=== PATIENT | male | born 1945 | race African-American/Black ===

== ENCOUNTER 2019-05-31 07:55 | Inpatient (IN) | payer MEDICARE ==
[2019-05-31] VITALS (17 sets, daily range): BP systolic 91–197; BP diastolic 68–137; BMI 19.8
[~2019-05-31] VITALS: Ht 177.8 cm; Wt 58.6 kg
--- NOTE | ~2019-05-31 | HEMODYNAMI ---
PATIENT:JAY HAWTHORNE MEDICAL RECORD: [id number] : 45 LOCATION:[facility] D.2305 ADMISSION DATE: 05/31/19 Generatedon:06/01/201916:44 Patient name: JAY HAWTHORNE Patient #: [id number] SSN: [id number] : 1945 Date of study: 06/01/2019 Page: Of Hemodynamic Procedure Report Patient Data Patient Demographics Procedure consent was obtained First Name: JAY Gender: Male Last Name: CHRISTOPH : 1945 Patient #: [id number] Age: 74 year(s) Race: Black SSN: [id number] Additional ID: [id number] Contact details Address: [address] [place] [address] State: [place] City: [place] Zip code: [address] Past Medical History Allergies Allergen Reaction Date Comments Reported Penicillins 06/01/2019 Admission Admission Data Admission Date: 05/31/2019 Admission Time: 8:07 Room #: D.2305 Height (in.): 70 BSA: 1.79 (m2) Height (cm.): 177.8 BMI: 19.93 (kg/m2) Weight (lbs.): 138.89 Weight (kg.): 63 Lab Results Lab Result Date: 06/01/2019 Lab Result Time: 0:00 Biochemistry Name Units Result Min Max BUN mg/dl 59 --(----)-* 7 18 Creatinine mg/dl 4.6 --(----)-* 0.6 1.3 eGFR ml/min 16 *-(----)-- 90 120 AM CBC Name Units Result Min Max Hematocrit % 28.2 *-(----)-- 42 54 Hemoglobin g/dl 8.9 *-(----)-- 13.5 17.5 Procedure Procedure Types Cath Procedure Diagnostic Procedure C LH w/Coronaries Sedation Charges Moderate Sedation up to 15 minutes PCI Procedure Coronary Stent Coronary Stent Initial Hemochron ACT Test Procedure Description Procedure Date Procedure Date: 06/01/2019 Procedure Start Time: 16:20 Procedure End Time: 16:39 Procedure Staff Name Function Leo Caba MD Performing Physician Omayra Gomez RT Monitor Cole Matthews RT Scrub Ronny Parry RN Nurse Indication CAD NSTEMI Procedure Data Cath Procedure Fluoroscopy Diagnostic fluoroscopy Total fluoroscopy Time: 4 time: 4 min min Diagnostic fluoroscopy Total fluoroscopy dose: 497 dose: 497 mGy mGy Contrast Material Contrast Material Type Amount (ml) Isovue 300 92 Entry Location Entry Primary Successful Side Size Upsize Upsize Entry Closure Succes sful Closure Location (Fr) 1 (Fr) 2 (Fr) Remarks Device Remarks Femoral Right 5 Fr 6 Fr Exoseal artery Short Estimated blood loss: 10 ml Diagnostic catheters Device Type Used For End Catheter Placement MULTIPACK JL 4.0 5Fr Procedure catheter MULTIPACK 3DRC 5Fr Procedure catheter MULTIPACK Pigtail 5 Fr Ventriculography catheter Procedure Complications No complications Procedure Medications Medication Administration Route Dosage Diprivan 1% 55 mcg/kg/min (Propofol) Cardizem I.V. drip 5 mg/hr (125mg/125ml NS) Oxygen Lidocaine 2% added to field 20 Heparin Flush Bag added to field 2 bags (1000units/500ml NS) 0.9% NaCl I.V. Heparin Bolus I.V. 5000 units Integrilin (Bolus I.V. 5.6 ml 2mg/ml) Integrilin (Bolus wasted 4.4 ml 2mg/ml) Hemodynamics Rest BSA: 1.79 (m2) HGB: 8.9 (g/dl) O2 Consumption: Estimated: 217.64 (ml/min) O2 Con sumption indexed: Estimated:121.59 (ml/min/m) Heart Rate: 87 (bpm) Pressure Samples Time Site Value (mmHg) Purpose Heart Use Rate(bpm) 16:25 LV 175/6,23 Snapshot 89 16:26 AO 153/101(126) Pullback 89 Gradients Valve Time Site Site 2 Mean SEP/DFP Peak To Heart Use 1 (mmHg) (sec/min) Peak Rate (mmHg) (bpm) Aortic 16:26 LV AO 34 25 89 153/101(126) Calculations Valve P-P Mean Valve Index Valve Source Name Gradient Area Flow (cm2) Aortic 34 34 Snapshots Pre Cath Intra NCS Post Cath Vital Signs Time Heart Resp SPO2 etCO2 NIBP (mmHg) Rhythm Pain Sedation Rate (ipm) (%) (mmHg) Status Level (bpm) 16:11:13 86 16 100 0 152/95(122) NSR 0 (11) 6(A) , No pain 16:15:27 89 16 100 0 170/103(129) NSR 0 (11) 6(A) , No pain 16:19:47 90 17 100 0 163/102(139) NSR 0 (11) 6(A) , No pain 16:24:05 88 17 100 0 175/96(135) NSR 0 (11) 6(A) , No pain 16:28:23 88 18 100 0 160/96(134) NSR 0 (11) 6(A) , No pain 16:32:39 90 19 100 0 152/92(129) NSR 0 (11) 6(A) , No pain 16:36:53 89 18 100 0 154/92(125) NSR 0 (11) 6(A) , No pain Medications Time Medication Route Dose Verified Delivered Reason N otes Effectiveness by by 16:10:10 Diprivan 1% I.V.PB 55 Leo Jefferson for sedation C ont (Propofol) mcg/kg/min St Danny rock MD RN from icu to Money Room Supervisor 16:11:02 Cardizem I.V. 5 mg/hr Leo Jefferson Per physician C ont (125mg/125ml NS) drip St Danny rock MD RN from icu to bolt labeler 16:11:26 Oxygen pt on Leo Jefferson Per physician ventilator St Danny Parry MD RN 16:11:45 Lidocaine 2% added 20ml vial Leo Bailey for local to [facility] anesthetic field MD PATHAK 16:11:55 Heparin Flush added 2 bags Leo Bailey used for Bag to [facility] procedure (1000units/500ml field MD PATHAK NS) 16:12:01 0.9% NaCl I.V. kvo ml/hr Leo Jefferson Per physician St Danny Parry MD RN 16:29:39 Heparin Bolus I.V. 5000 units Leo Jefferson for [place] Sohan anticoagulation MD GUO 16:29:53 Integrilin I.V. 5.6 ml Leo Jefferson for (Bolus 2mg/ml) St Danny Parry antiplatelet MD RN therapy 16:31:00 Integrilin wasted 4.4 ml Leo Jefferson to sharp's (Bolus 2mg/ml) St Danny Parry MD lamina searcher Log Time Note 15:36:29 Informed consent obtained and on chart 15:36:50 Procedure Status Urgent Heart Cath (IP). 15:36:51 Time tracking: Regular hours (M-F 7:00 - 5:00) 15:36:55 Plan of Care:Hemodynamics will remain stable., Cardiac rhythm will remain stable., Comfort level will be maintained., Respiratory function will remain adequate., Patient/ family verbilizes understanding of procedure., Procedure tolerated without complication., Recovers from procedure without complications.. 15:37:03 H&P Date Dictated: 06/01/2019 Within 30 days and on chart.. 15:37:13 Patient allergic to Penicillins 15:38:19 Lab Result : BUN 59 mg/dl 15:38:19 Lab Result : Creatinine 4.6 mg/dl 15:38:19 Lab Result : eGFR AM 16 ml/min 15:38:19 Lab Result : Hemoglobin 8.9 g/dl 15:38:19 Lab Result : Hematocrit 28.2 % 15:38:36 Stress Test: no; N/A NSTEMI 15:39:52 Patient Weight : 138.89 lbs 15:39:55 Patient Height : 70 inches 15:41:21 Indication : CAD 15:41:28 Indication : NSTEMI 15:42:55 Cole Matthews RT(R) sent for patient. Start room use. 15:43:06 Patient received from ICU to CCL 1 Alert and oriented. Tansferred to table in Supine position. 15:49:20 5) <15 or on dialysis Very severe, or end stage kidney failure. 15:49:44 Maximum allowable contrast dose (3.7 X eGFR X 0.75)44 ml. 16:10:04 Warm blankets applied, and miguel hugger turned on for patient comfort. 16:10:05 Correct patient and procedure confirmed by team. 16:10:05 ECG and BP/O2 sat monitors applied to patient. 16:10:06 Vital chart was started 16:10:09 Baseline sample Acquired. 16:10:10 Diprivan 1% (Propofol) 55 mcg/kg/min I.V.PB was administered by Ronny Lorigan RN; for sedation; Cont drip from icu to Money Room Supervisor Verbal order read back and verified. 16:10:13 Full Disclosure recording started 16:10:29 Unable to provide pre-op teaching due to educational barrier. SEDATED 16:10:35 Patient NPO since Midnight. 16:10:38 Is the patient allergic to Iodine/contrast media? No. 16:10:40 Was the patient premedicated? Yes 16:10:57 Is patient on blood thinner?No 16:11:02 Cardizem (125mg/125ml NS) 5 mg/hr I.V. drip was administered by Ronny Parry RN; Per physician; Cont drip from icu to bolt labeler Verbal order read back and verified. 16:11:20 Patient diabetic? Unknown. 16:11:26 Oxygen pt on ventilator was administered by Ronny Parry RN; Per physician; Verbal order read back and verified. 16:11:26 Snore? Unknown 16:11:28 Sleep apnea? Unknown 16:11:45 Lidocaine 2% 20ml vial added to field was administered by Leo Caba MD; for local anesthetic; Verbal order read back and verified. 16:11:55 Heparin Flush Bag (1000units/500ml NS) 2 bags added to field was administered by Leo Caba MD; used for procedure; Verbal order read back and verified. 16:12:01 0.9% NaCl kvo ml/hr I.V. was administered by Ronny Parry RN; Per physician; Verbal order read back and verified. 16:12:21 Airway obstruction? Yes pnd ORTHOPNEA 16:12:26 Dentures? Unknown ? 16:12:40 IV patent on arrival in left forearm with 0.9% NaCl at KVO. 16:12:54 Lab results completed and on chart. 16:13:05 Risk of Mortality: 1.4 16:13:08 Risk of blood transfusion: 20.1 16:13:13 Risk of DENNISE: 14.0 16:13:18 Right groin area was prepped with chlora-prep and draped in sterile fashion 16:13:19 Alarms reviewed by R. N. 16:13:20 Sharps counted by scrub and verified by R.N. 16:13:24 Physician arrived 16:13:24 --------ALL STOP TIME OUT------ 16:13:25 Final Timeout: patient, procedure, and site verified with staff and physician. All members of the team are in agreement. 16:13:27 Right groin site verified by team. 16:13:34 Fire Safety Assessment: A--An alcohol-based skin anteseptic being used preoperatively., C--Open oxygen or nitrous oxide is being used., D--An ESU, laser, or fiber-optic light is being used. 16:13:45 Physical assessment completed. ASA score P 4 - A patient with severe systemic disease that is a constant threat to life as per Leo Caba MD. 16:14:07 Use device set Femoral Dx 16:14:12 ACIST Syringe (54856) opened to sterile field. 16:14:15 Bag Decanter (2002S) opened to sterile field. 16:14:16 Medline Cath Pack ([id number]) opened to sterile field. 16:14:17 ACIST Hand Control (41541) opened to sterile field. 16:14:24 ACIST Manifold (70655) opened to sterile field. 16:14:25 DIAGNOSTIC Multipack 5Fr catheter set ([id number]) opened to sterile field. 16:14:26 Tegaderm 4 x 4 (1626W) opened to sterile field. 16:14:28 SHEATH 5FR Lakemore (QIR643) opened to sterile field. 16:14:29 EMERALD Guide Wire (486-929) opened to sterile field. 16:16:16 Zero performed for pressure channel P1 16:19:59 Procedure started. 16:20:16 Local anesthetic to right femoral artery with Lidocaine 2% by Leo Caba MD.INITIAL ACCESS ONLY 16:21:02 A 5 Fr sheath was inserted into the Right Femoral artery 16:21:49 A MULTIPACK JL 4.0 5Fr catheter was advanced over the wire and used for Procedure. 16:22:08 Catheter removed. 16:22:16 A MULTIPACK 3DRC 5Fr catheter was advanced over the wire and used for Procedure. 16:22:22 RCA angiography performed. 16:24:51 Catheter removed. 16:25:03 A MULTIPACK Pigtail 5 Fr catheter was advanced over the wire and used for Ventriculography. 16:25:09 LV angiography performed. 16:25:15 LV gram done using LIN 16:26:23 EF : 40 % 16:27:38 Catheter removed. 16::53 Sheath upsized to a 6 Fr Short. 16:28:45 6 Fr xblad3.5 guide catheter was inserted over the wire 16:28:52 wHISPER wire advanced. 16:29:39 Heparin Bolus 5000 units I.V. was administered by Ronny Parry RN; for anticoagulation; Verbal order read back and verified. 16:29:53 Integrilin (Bolus 2mg/ml) 5.6 ml I.V. was administered by Ronny Parry RN; for antiplatelet therapy; Verbal order read back and verified. 16:30:40 GUIDE 6FR XBLAD 3.5 catheter ([id number]) opened to sterile field. 16:30:41 WHISPER 300cm guide wire ([id number]) opened to sterile field. 16:30:42 INFLATOR Merit BasixCompak (JQ6978) opened to sterile field. 16:30:43 SHEATH 6FR [place] (XPE423) opened to sterile field. 16:31:00 Integrilin (Bolus 2mg/ml) 4.4 ml wasted was administered by Ronny Parry RN; to sharp's; Verbal order read back and verified. 16:32:52 Place stent Inflation Number: 1 A INTEGRITY OTW 3.0 X 12 stent ([id number]) was prepped and advanced across the Dist LAD 80. The stent was deployed at 14 CHRISTIANO for 0:45 (min:sec) . 16:33:33 EXOSEAL 6Fr (EX600) opened to sterile field. 16:34:16 Procedure type changed to Cath procedure, Diagnostic procedure, LHC, LHC w/Coronaries, Sedation Charges, Moderate Sedation up to 15 minutes, PCI procedure, Coronary Stent, Coronary Stent Initial, Hemochron ACT Test 16:35:35 ACT drawn and resulted at ?278 seconds. (normal therapeutic range 180-240 seconds). 16:35:38 Wire removed. 16:35:39 Guide catheter removed. 16:36:01 Sheath removed intact; hemostasis achieved with Exoseal to the Right Femoral artery. 16:36:03 Procedure ended.(Physican Out) 16:36:21 Fluoroscopy time 04.00 minutes. 16:36:25 Fluoroscopy dose: 497 mGy 16:36:25 Flurop Dose total: 497 16:36:32 Dose Area Product 01452 mGy/cm. 16:36:38 Contrast amount:Isovue 300 92ml. 16:36:41 Maximum allowable dose exceeded? Yes. 16:36:50 Insertion/operative site no bleeding no hematoma. 16:36:57 Post-op/insertion site Right Femoral artery dressed using a 4 x 4 and Tegaderm. 16:37:05 Post Procedure Pulses reassessed and unchanged 16:37:22 Post-procedure physical assessment completed. ASA score P 3 - A patient with severe systemic disease as per Leo Caba MD. 16:37:31 Post procedure rhythm: unchanged. 16:37:34 Estimated blood loss: 10 ml 16:37:42 Patient needs reinforcement of post procedure teaching. 16:37:47 Procedure and supply charges have been captured, reviewed, submitted and are correct. 16:38:14 Procedure Complication : No complications 16:38:18 Vital chart was stopped 16:38:23 See physician's report for complete and final results. 16:39:25 Report given to ICU. 16:39:31 Patient transfered to ICU with Bed. 16:39:37 Procedure ended. 16:39:37 Full Disclosure recording stopped 16:39:42 End room use (Document Last) 16:39:46 ACC-PCI Only Patient was given prescriptions, or instructed by Leo Caba MD to start/continue the following medications upon discharge: Plavix Intervention Summary Intervention Notes Time ActionType Lesion and Equipment Action# Pressure Duration Attributes Used 16:32:52 Place stent Dist LAD INTEGRITY 1 14 00:45 OTW 3.0 X 12 stent ([id number]) Device Usage Item Name Manufacture Quantity Catalog Hospital Part Current Minimal L ot# / Number Charge Number Stock Stock Serial# Code ACIST Acist 1 55367 102963 451796 552827 20 Syringe Medical (65753) Systems Inc Bag Microtek 1 247655 57408 848753 5 Decanter Medical Inc. () Medline Medline 1 [id number] 661668 74463 554876 5 Cath Pack ([id number]) ACIST Hand Acist 1 19384 924149 192234 744462 5 Control Medical (30541) Systems Inc ACIST Acist 1 22183 328978 205523 613931 5 Manifold Medical (00468) Systems Inc DIAGNOSTIC Cardinal 1 [id number] 328765 54054 136366 30 Multipack Health 5Fr catheter set (SU4938) Tegaderm 4 3M 1 1626W 847169 884877 788079 5 x 4 (1626W) SHEATH 5FR Terumo 1 MAU480 143613 581974 177625 5 Lakemore (FZC651) EMERALD Cardinal 1 502-455 147525 993515 907810 5 Guide Wire Health (502-455) MULTIPACK Cardinal 1 498163 5 JL 4.0 5Fr Health catheter MULTIPACK Cardinal 1 800215 5 3DRC 5Fr Health catheter MULTIPACK Cardinal 1 493050 5 Pigtail 5 Health Fr catheter GUIDE 6FR Cardinal 1 [id number] 674002 838383 414552 10 XBLAD 3.5 Health catheter ([id number]) WHISPER Lemons 1 [id number] 228108 220627 171728 5 300cm guide Vascular wire ([id number]) INFLATOR [facility] 1 AM4325 657850 448490 895069 15 [facility] Medical BasixCompak (HH6008) SHEATH 6FR Terumo 1 BKJ872 609752 154710 454478 40 [place] (DFT219) INTEGRITY Medtronic 1 [id number] 003151 432429 289339 1 0 [id number] OTW 3.0 X 12 stent ([id number]) EXOSEAL 6Fr Cardinal 1 EX600 113258 713512 049900 10 (EX600) Health Signature Audit [place] Stage Time Signature Unsigned Intra-Procedure 06/01/2019 Omayra Gomez 4:42:12 PM RT(R) Intra-Procedure 06/01/2019 Ronny 4:43:06 PM Sohan RN Intra-Procedure 06/01/2019 Leo Miranda 4:44:08 PM Danny PATHAK [id number] [place] [address]
[2019-05-31] MEDS ORDERED: LASIX40 MG PO (08:10)
[2019-05-31] MEDS ORDERED: PLAVIX75 MG PO (08:12)
[2019-05-31] MEDS ORDERED: LOSARTAN (08:13)
[2019-05-31] MEDS ORDERED: LIPITOR10 MG PO (08:13)
[2019-05-31] MEDS ORDERED: METOPROLOL TART50 MG PO (08:14)
[2019-05-31 09:12] LABS: APPEARANCE CLEAR (CLEAR); BILIRUBIN NEGATIVE (NEGATIVE); COLOR YELLOW (YELLOW); GLUCOSE NEGATIVE (NEGATIVE); KETONE NEGATIVE (NEGATIVE); NITRITE NEGATIVE (NEGATIVE); PROTEIN NEGATIVE (NEGATIVE); UROBILINOGEN NORMAL (NORMAL)
[2019-05-31 09:13] LABS: WHITE CELLS - URINE RARE /hpf (NEGATIVE)
[2019-05-31 09:14] LABS: AMORPHOUS SEDIMENT <1+ /lpf (NONE SEEN); BACTERIA FEW /hpf (NEGATIVE); EPITHELIAL CELLS RARE /hpf (0-5); MUCUS <1+ /lpf (NONE SEEN); RED CELLS - URINE 0-5 /hpf (0-5)
[2019-05-31 09:20] LABS: BASOPHILS 0.1 % (0-2); EOSINOPHILS 0.2 % (0-7); HEMATOCRIT 28.2 % (42.0-54.0); HEMOGLOBIN 8.9 g/dL (13.5-17.5); IMMATURE GRANULOCYTES 0.2 % (0-5); MCHC 31.6 g/dL (31.0-37.0); MCV 85.5 fL (80.0-100.0); MONOCYTES 7.8 % (2-11); NEUTROPHILS 79.7 % (40-80); PLATELET COUNT 165 10x3/uL (130-400); RDW 15.7 % (11.5-14.5); WBC 9.5 10x3/uL (4.8-10.8)
--- NOTE | 2019-05-31 09:30 | NUR ---
PT RECEIVED FROM OR. COMPLETE BB LINEN CHANGE ADM. BLOODY EMESIS NOTED ON SHEETS AND FROM MOUTH RT ALERTED BITE BLOCK ADM. LLQ COLOSTOMY CHANGE ADM LARGE AMOUNT OF LOOSE LIQUID BM NOTED. STOMA PINK IN COLOR NO SKIN BREAKDOWN NOTED. OGT ADM MINIMAL YELLOW/GREEN EMESIS NOTED. SBP [address] DR CHRIS ALERTED STATED TO FORWARD TO PRIMARY. DR CRUZ ALERTED OF SBP NEW ORDERS RECEIVED REVIEW EMAR. FAMILY AT BEDSIDE GIVEN UPDTAE. NURSE AT BEDSIDE WILL CONTINUE TO MONITOR
[2019-05-31 09:35] LABS: CALC OSMOLALITY 307 mosm/kg (275-300); CALCIUM 7.9 mg/dL (8.5-10.1); CARBON DIOXIDE 21.4 mmol/L (21.0-32.0); CHLORIDE - SERUM 111 mmol/L (98-107); CREATININE - SERUM 4.6 mg/dL (0.6-1.3); GLUCOSE 105 mg/dL (74-106); POTASSIUM - SERUM 4.4 mmol/L (3.5-5.1); SODIUM 146 mmol/L (136-145); UREA NITROGEN 59 mg/dL (7-18); eGFR NON AFRICAN AMERICAN 13 mL/min (90-120)
[2019-05-31 09:39] LABS: APTT 22.5 SECONDS (22.8-39.4); INR 1.15 (0.85-1.17); PROTIME 14.2 SECONDS (11.6-15.0)
[2019-05-31 09:57] LABS: ALBUMIN 2.6 g/dL (3.4-5.0); ALKALINE PHOSPHATASE 77 U/L (46-116); ALT (SGPT) 67 U/L (10-68); CREATINE KINASE 190 UL (21-232); PROTEIN - SERUM 5.8 g/dL (6.4-8.2)
--- NOTE | 2019-05-31 10:08 | NUR ---
PATIENT INTUBATED UNABLE TO PROVIDE HISTORY. FAMILY STATED THEY KNOW NOTHING ABOUT HIS HISTORY.
--- NOTE | 2019-05-31 10:09 | NUR ---
COLOSTOMY BAG CHANGED. LINEN CHANGE. OG INSERTED.
[2019-05-31 10:20] LABS: % SATURATION 26 % (15-55); IRON 45 ug/dl (35-150); TOTAL IRON BIND CAPACITY 172 ug/dl (260-445); UNSAT IRON BIND CAPACITY 127 ug/dl (150-375)
--- NOTE | 2019-05-31 10:50 | NUR ---
DR CRUZ PAGECarlos. GIVEN UPDATE REGAURDING ELEVATED TROPONIN AND D-DIMER. NEW ORDERS RECEIVED. DR MONTALVO PAGECarlos REGAURDING CONSULT. NO ANSWER.
--- NOTE | 2019-05-31 11:30 | NUR ---
REASSESSMENT COMPLETE PER FLOW SHEET. VSS. NO NEW CHANGES PT RESTING COMFORTABLY WILL CONTINUE TO MONITOR
--- NOTE | 2019-05-31 12:33 | MORECARE ---
CASE MANAGEMENT DISCHARGE SUMMARY PATIENT: JAY JENNINGS UNIT: [id number] ADM DATE: 05/31/19 AGE: 74 : 45 SEX: M ROOM/BED: D.2305 AUTHOR: MICHAEL WALSH PHYSICIAN: REFERRING PHYSICIAN: EMILY CRUZ MD DATE OF SERVICE: 05/31/19 Discharge Plan Patient Name: JAY JENNINGS [facility] [facility] 1945 Planned Disposition: Home Anticipated Discharge Date: Discharge Date: Expected LOS: Initial Reviewer: [email or web address] Initial Review Date: 05/31/2019 Generated: 05/31/19 1:33 pm DCPIA - Discharge Planning Initial Assessment Updated by [email or web address]: Sarah Simmons on 05/31/19 12:32 pm * Is the patient Alert and Oriented? Yes * PCP Family not sure who his pcp is. * Pharmacy [facility] in [place] * Preadmission Environment Home with Family * ADLs Independent * Equipment None * List name and contact numbers for known caregivers / representatives who currently or will assist patient after discharge: Donn Jennings - Brother - [phone] Bryanna Jennings - daughter- [phone] * Verbal permission to speak to the caregivers and representatives has been obtained from the patient. Yes * Community resources currently utilized None * Can the patient safely return to the preadmission environment? Yes * Has this patient been hospitalized within the prior 30 days at any hospital? No Patient Name: JAY JENNINGS Page [phone] at 1233 All edits/amendments must be made on the electronic document DICTATION DATE: 05/31/19 1233 LEARNING FACILITATOR: DIANE 05/31/19 1233 RPT#: [id number] DC DATE: STATUS: ADM IN [facility] [address] [place] [address] END OF REPORT
--- NOTE | 2019-05-31 12:42 | MORECARE ---
CASE MANAGEMENT DISCHARGE SUMMARY PATIENT: JAY JENNINGS UNIT: [id number] ADM DATE: 05/31/19 AGE: 74 : 45 SEX: M ROOM/BED: D.2305 AUTHOR: NICO,DOC PHYSICIAN: REFERRING PHYSICIAN: EMILY CRUZ MD DATE OF SERVICE: 05/31/19 Discharge Plan Patient Name: JAY JENNINGS Facility: [facility]:[place] : 1945 Planned Disposition: Home Anticipated Discharge Date: Discharge Date: Expected LOS: Initial Reviewer: [email or web address] Initial Review Date: 05/31/2019 Generated: 05/31/19 1:41 pm DCP- Discharge Planning Updated by [email or web address]: Sarah Simmons on 05/31/19 11:[address] DC PLAN: Undetermined at this time. ANTICIPATED DC NEEDS: Family denied dc needs. Patient on Vent. CM met with patient's family due to patient being on vent to complete initial dc planning assessment. CM educated patients brother on the CM role and verbal consent given by patient's brother, Jay Jennings to complete assessment. CM verified patient's address, phone number, and emergency contact phone numbers. Patient lives at home with his daughter part of the time and with his girlfriend in [place] part of the time. At discharge family reports the patient will want to return home and they feel this is a safe discharge. CM discussed availability of home health, rehab services, and medical equipment. Donn is unsure of dc needs at this time due to patient being on the Vent. DC plan is undetermined at this time and cm will need to re-evaluate once patient medically stable. CM will continue to follow and will assist as needed with dc plans/needs. Sarah Simmons RN, [facility] DCPIA - Discharge Planning Initial Assessment Updated by [email or web address]: Sarah Simmons on 05/31/19 12:32 pm * Is the patient Alert and Oriented? Yes * PCP Family not sure who his pcp is. * Pharmacy [facility] in [place] * Preadmission Environment Home with Family * ADLs Independent * Equipment None * List name and contact numbers for known caregivers / representatives who currently or will assist patient after discharge: Donn Jennings - Brother - [phone] [facility] - daughter- [phone] * Verbal permission to speak to the caregivers and representatives has been obtained from the patient. Yes * Community resources currently utilized None * Can the patient safely return to the preadmission environment? Yes * Has this patient been hospitalized within the prior 30 days at any hospital? No Last DP export: 05/31/19 11:33 a Patient Name: JAY JENNINGS Page [phone] at 1242 All edits/amendments must be made on the electronic document DICTATION DATE: 05/31/19 1241 LINING STUFFER: DIANE 05/31/19 1241 RPT#: [id number] DC DATE: STATUS: ADM IN [facility] [address] [place] [address] END OF REPORT
--- NOTE | 2019-05-31 14:20 | NUR ---
DR MONTALVO OFFICE PAGED STATED DR MYLES ONLY AGRONOMY PROFESSOR IN [facility]. DR ODELL GIVEN UPDATE REGAURDING PT STATUS. STATED OKAY.
--- NOTE | 2019-05-31 15:15 | NUR ---
REASSESSMENT COMPLETE PER FLOW SHEET. VSS. NO NEW CHANGES WILL CONTINUE TO MONITOR
--- NOTE | 2019-05-31 15:15 | NUR ---
HIRO FROST WITH CARDIOLOGY AT BEDSIDE GIVEN UDPATE. NEW ORDERS RECEIVED.
[2019-05-31 17:14] LABS: BASOPHILS 0.1 % (0-2); EOSINOPHILS 0.2 % (0-7); HEMATOCRIT 29.8 % (42.0-54.0); HEMOGLOBIN 9.5 g/dL (13.5-17.5); IMMATURE GRANULOCYTES 0.2 % (0-5); LYMPHOCYTES 8.6 % (15-50); MCH 27.1 pg (26.0-34.0); MCHC 31.9 g/dL (31.0-37.0); MCV 85.1 fL (80.0-100.0); MEAN PLATELET VOLUME 10.9 fL (7.4-10.4); MONOCYTES 9.4 % (2-11); NEUTROPHILS 81.5 % (40-80); PLATELET COUNT 163 10x3/uL (130-400); RDW 15.5 % (11.5-14.5)
[2019-05-31 17:41] LABS: ANION GAP 19.8 mmol/L (8-16); CALCIUM 7.4 mg/dL (8.5-10.1); CARBON DIOXIDE 19.5 mmol/L (21.0-32.0); CHOL - HDL RATIO 1.8 ratio (2.3-4.9); CREATININE - SERUM 4.4 mg/dL (0.6-1.3); LDL-HDL RATIO 0.5 ratio (1.5-3.5)
[2019-05-31 17:42] LABS: POTASSIUM - SERUM 3.3 mmol/L (3.5-5.1)
[2019-05-31 18:06] LABS: CKMB 3.2 U/L (0.0-3.6); CREATINE KINASE 200 UL (21-232)
[2019-06-01] VITALS (27 sets, daily range): BP systolic 90–155; BP diastolic 67–100; Ht 177.8 cm; Wt 58.6 kg
[2019-06-01 00:01] LABS: CREATINE KINASE 186 UL (21-232)
[2019-06-01 00:03] LABS: TROPONIN-I 0.339 ng/mL (0.000-0.060)
[2019-06-01 04:32] LABS: BASOPHILS 0.1 % (0-2); EOSINOPHILS 0.2 % (0-7); HEMATOCRIT 31.3 % (42.0-54.0); HEMOGLOBIN 10.9 g/dL (13.5-17.5); IMMATURE GRANULOCYTES 0.2 % (0-5); LYMPHOCYTES 10.4 % (15-50); MCH 29.2 pg (26.0-34.0); MCHC 34.8 g/dL (31.0-37.0); MCV 83.9 fL (80.0-100.0); MONOCYTES 9.4 % (2-11); NEUTROPHILS 79.7 % (40-80); RBC 3.73 10x6/uL (4.20-6.10); RDW 15.4 % (11.5-14.5); WBC 12.7 10x3/uL (4.8-10.8)
[2019-06-01 04:33] LABS: PLATELET COUNT 110 10x3/uL (130-400)
[2019-06-01 04:40] LABS: ALBUMIN 2.5 g/dL (3.4-5.0); BILIRUBIN - TOTAL 0.61 mg/dL (0.2-1.3); CALCIUM 7.7 mg/dL (8.5-10.1); CARBON DIOXIDE 20.8 mmol/L (21.0-32.0); CREATININE - SERUM 4.5 mg/dL (0.6-1.3)
[2019-06-01 04:44] LABS: ANION GAP 19.4 mmol/L (8-16); POTASSIUM - SERUM 4.2 mmol/L (3.5-5.1)
--- NOTE | 2019-06-01 07:00 | NUR ---
SHIFT REPORT RECEIVED. PT SEDATED ON VENT. SEE FLOWSHEET FOR VENT SETTINGS. INFUSAPORT ON RIGHT SIDE OF CHEST WITH PROPOFOL AND CARDIZEM INFUSING. 7.5ETT. OGT TO LIS. COLOSTOMY NOTED ON LUQ WITH LIQUID DRAINAGE NOTED. BRYAN IN PLACE WITH CONCENTRATED URINE. PULLED UP AND REPOSITIONED FOR COMFORT. WILL CONTINUE TO MONITOR. SAFETY MEASURES IN PLACE.
[2019-06-01 07:46] LABS: URIC ACID 8.9 mg/dL (2.6-7.2)
[2019-06-01 07:47] LABS: TROPONIN-I 0.201 ng/mL (0.000-0.060)
--- NOTE | 2019-06-01 08:51 | NUR ---
Dr. Hoffman at bedside. Ordered to decrease cardizem drip down to 10mg/hr and continue to decrease if pt remains in normal sinus.
[2019-06-01 08:53] LABS: CHOL - HDL RATIO 2.7 ratio (2.3-4.9); LDL-HDL RATIO 0.8 ratio (1.5-3.5)
--- NOTE | 2019-06-01 09:14 | NUR ---
DR. CHRIS ORDERED FIO2 TO BE DECREASED TO 40%.
--- NOTE | 2019-06-01 15:14 | NUR ---
PRE OP MEDS GIVE PER ORDERS.
--- NOTE | 2019-06-01 16:00 | NUR ---
PT SENT TO NUMERICAL CONTROL NESTING OPERATOR AT THIS TIME. UNABLE TO REACH FAMILY TO ACQUIRE BLOOD CONSENT. PHONE NUMBERS USED [phone] AND [phone].
--- NOTE | 2019-06-01 16:11 | NUR ---
CONSENT FOR BLOOD PRODUCTS ACQUIRED FROM LUDY HAWTHORNE.
--- NOTE | 2019-06-01 17:14 | NUR ---
PT ARRIVED TO UNIT AT 1700. CONTINUES INTUBATED AND SEDATED. RIGHT GROIN DRESSING C/D/I. SOFT TO PALPATION. NO HEMATOMA NOTED. CONNECTED TO ICU MONITORS. BP 139/90, HR 88, TEMP 98.4. WILL CONTINUE TO MONITOR.
--- NOTE | 2019-06-01 18:12 | NUR ---
CALL RECEIVED FROM PT [id number]. PASSCODE VERIFIED "THUNDER." BRIEF UPDATE GIVEN.
[2019-06-02] VITALS (24 sets, daily range): BP systolic 97–145; BP diastolic 70–91
--- NOTE | 2019-06-02 09:15 | NUR ---
PROPOFOL TURNED OFF PER DR. CHRIS.
--- NOTE | 2019-06-02 09:50 | NUR ---
BRYAN CATHETER NOT DRAINING. TUBE FLUSHED WITH 50CC OF NORMAL SALINE. ABOUT 200ML OF BLOODY URINE NOTED. SMALL CLOT NOTED. WILL CONTINUE TO MONITOR.
--- NOTE | 2019-06-02 10:44 | NUR ---
EXTUBATED AT 1035.
--- NOTE | 2019-06-02 14:45 | NUR ---
CHG BATH GIVEN. COMPLETE LINEN CHANGE PROVIDED. PULLED UP IN BED AND REPOSITIONED FOR COMFORT. NO FURTHER NEEDS AT THIS TIME. WILL CONTINUE TO MONITOR.
[2019-06-02 18:08] LABS: HEPATITIS C ANTIBODY <0.1 S/CO RAT (0.0-0.9)
--- NOTE | 2019-06-02 19:00 | NUR ---
BEDSIDE REPORT RECEIVED FROM DAY SHIFT, PT CARE ASSUMED. INTRODUCED SELF AND WROTE NAME ON BOARD. PT SITTING UP IN BED, WATCHING TV, AAOX4. COLOSTOMY BAG CHANGED, LIQUID BROWN STOOL NOTED. CLEANED AROUND STOMA, PINK AND MOIST. PARTIAL LINEN CHANGE COMPLETED. PT DENIES PAIN OR ANY OTHER NEEDS AT THIS TIME. BED IN LOWEST POSITION, SR X2, CALL LIGHT WITHIN REACH. WILL CONTINUE TO MONITOR.
--- NOTE | 2019-06-02 19:00 | NUR ---
BEDSIDE REPORT RECEIVED FROM DAY SHIFT, PT CARE ASSUMED. INTRODUCED SELF AND WROTE NAME ON BOARD. PT SITTING UP IN BED, WATCHING TV, AAOX4. REQUESTING SNACK, PROVIDED. PT DENIES PAIN, SI, AND ANY OTHER NEEDS AT THIS TIME. BED IN LOWEST POSITION, SR X2, CALL LIGHT WITHIN REACH. TECH AT BEDSIDE. WILL CONTINUE TO MONITOR.
[2019-06-03] VITALS (13 sets, daily range): BP systolic 134–180; BP diastolic 80–99
--- NOTE | 2019-06-03 04:00 | NUR ---
750 ML DARK CONCENTRATED BLOODY URINE DRAINED FROM BRYAN.
--- NOTE | 2019-06-03 05:00 | NUR ---
PT LYING IN BED WITH EYES CLOSED, RR EVEN AND NONLABORED, NO S/S OF DISTRESS, AROUSES EASILY TO VOICE. AM LABS DRAWN, TOLERATED WELL. DENIES ANY OTHER NEEDS AT THIS TIME. BED IN LOWEST POSITION, SR X2, WILL CONTINUE TO MONITOR.
[2019-06-03 05:23] LABS: BASOPHILS 0.1 % (0-2); EOSINOPHILS 1.1 % (0-7); HEMATOCRIT 22.1 % (42.0-54.0); IMMATURE GRANULOCYTES 0.3 % (0-5); LYMPHOCYTES 15.1 % (15-50); MCH 27.3 pg (26.0-34.0); MCHC 32.6 g/dL (31.0-37.0); MCV 83.7 fL (80.0-100.0); MONOCYTES 9.5 % (2-11); NEUTROPHILS 73.9 % (40-80); PLATELET COUNT 130 10x3/uL (130-400); RBC 2.64 10x6/uL (4.20-6.10); RDW 15.2 % (11.5-14.5); WBC 7.5 10x3/uL (4.8-10.8)
[2019-06-03 05:27] LABS: ANION GAP 18.4 mmol/L (8-16); CARBON DIOXIDE 21.4 mmol/L (21.0-32.0); CREATININE - SERUM 5.9 mg/dL (0.6-1.3); PHOSPHOROUS 5.2 mg/dL (2.5-4.9); POTASSIUM - SERUM 3.8 mmol/L (3.5-5.1)
[2019-06-03 06:22] LABS: HEMOGLOBIN 7.2 g/dL (13.5-17.5)
--- NOTE | 2019-06-03 06:23 | NUR ---
RECEIVED CRITICAL LAB VALUE OF HGB 7.2 FROM DARRELL IN LAB. NOTIFIED DR. DOMINGUEZ, WAS ROUNDING AT THE TIME. Critical Result Type: HGB Critical Result Value: 7.2 Time Nurse Notified: 622 Name of Physician and Time Called: DR. DOMINGUEZ Physician Notified at: 0623 Physician NOT Notified with Reason: Comments: Read Back and Verified By: HENRY BARAKAT RN
--- NOTE | 2019-06-03 07:00 | NUR ---
REPORT RECEVIED FROM THE OFF GOING RN. SEE ASSESSMENT IN THE PTS FLOW SHEET. VSS. NSR ON THE MONITOR. RA. NO C/O PAIN. LEFT UPPERCHEST INFUSAPORT NOTED. TYPE AND CROSS SENT OT THE LAB. LEFT COLOSTOMY NOTED. STOMA MOIST AND PINK. FC NOTED WITH DARK YELLOW/RED TINGED URINE. CALL LIGHT IN REACH. WILL CONT POC.
--- NOTE | 2019-06-03 08:47 | NUR ---
BLADDER SCANNED PER ORDERS. 0ML IN THE BLADDER NOTED.
--- NOTE | 2019-06-03 09:23 | NUR ---
WESANA OFF DEL PER DR CHRIS. ONCE OFF, OK TO TRANSFER OUT OF THE FLOOR.
[2019-06-03 09:24] LABS: CREATININE - URINE 89.5 mg/dL (30-125); PRO/CRE RATIO URINE 1.9 mg/g; PROTEIN - URINE 168.3 mg/dL (0.0-11.9)
[2019-06-03 09:29] LABS: APPEARANCE CLOUDY (CLEAR); BACTERIA FEW /hpf (NEGATIVE); BILIRUBIN NEGATIVE (NEGATIVE); COLOR DK YELLOW (YELLOW); EPITHELIAL CELLS RARE /hpf (0-5); GLUCOSE NEGATIVE (NEGATIVE); KETONE SMALL mg/dL (NEGATIVE); NITRITE NEGATIVE (NEGATIVE); PROTEIN 1+ mg/dL (NEGATIVE); RED CELLS - URINE >50 /hpf (0-5); SPECIFIC GRAVITY 1.015 (1.005-1.020); UROBILINOGEN NORMAL (NORMAL); WHITE CELLS - URINE 0-5 /hpf (NEGATIVE)
--- NOTE | 2019-06-03 09:31 | NUR ---
Nutrition follow-up: Pt now extubated Diet has advanced to renal consistent CHO mechanical soft with thin liquids Labs reviewed Wt: 129# +BM RDN following.
[2019-06-03 11:10] LABS: ANA REFLEX - DIRECT Negative (Negative)
--- NOTE | 2019-06-03 12:08 | NUR ---
LUNCH PROVIDED FOR THE PT. VSS. WILL CONT POC.
--- NOTE | 2019-06-03 13:10 | NUR ---
PATIENT TO ROOM 2228. NO COMPLAINTS OR SIGNS OF DISTRESS AT THIS TIME. IV INTACT. SITTING UP IN BED WITH COLOSTOMY INTACT. IV INFUSING BLOOD AT THIS TIME.WILL CONTINUE TO MONITOR. CALL LIGHT WITHIN REACH.
--- NOTE | 2019-06-03 13:36 | NUR ---
REPORT CALLED TO LUI GUO ON MED 2. VSS. 500 CC EMPTIED FROM COLOSTOMY. WILL PT TRANSFERED TO MED 2 IN A STABLE CONDITION.
--- NOTE | 2019-06-03 15:00 | NUR ---
PATIENT IN BED WITH IV INTACT. VS STABLE. BP HIGH. PATIENT WAS ON CARDIZEM DRIP FOR BP IN ICU. WILL CONTINUE TO MONITOR. CALL LIGHT WITHIN REACH.
--- NOTE | 2019-06-03 15:55 | NUR ---
PATIENT 2ND UNIT OF BLOOD STARTED. IV INTACT. BP STILL HIGH. PATIENT STATED HIS BP ALWAYS GETS HIGH IN THE EVENINGS. WILL CONTINUE TO MONITOR. CALL LIGHT WITHIN REACH.
--- NOTE | 2019-06-03 17:00 | NUR ---
PATIENT RECIEVED HYDRALAZINE FOR BP. WILL RECIEVE LOPRESSOR BEFORE BED WELL. PATIENT HAS NO COMPLAINTS OR DISTRESS AT THIS TIME. BLOOD STILL INFUSING. CALL LIGHT WITHIN REACH. WILL CONTINUE TO MONITOR.
--- NOTE | 2019-06-03 18:00 | NUR ---
PATIENT BLOOD FINISHED AT THIS TIME. VS STABLE. BP STILL HIGH. COLOSTOMY EMPTIED. IV INTACT. NO COMPLAINTS OR SIGNS OF DISTRESS. CALL LIGHT WITHIN REACH.
--- NOTE | 2019-06-03 19:20 | NUR ---
CIRILO FLANAGAN, WILL ASSUME CARE OF PT, PT TALKING ON PHONE, DENIES ANY NEEDS AT THIS TIME, BED IS LOW, SRX2, CALL LIGHT IN REACH, WILL CONTINUE PLAN OF CARE
--- NOTE | 2019-06-03 20:30 | NUR ---
SPOKE WITH BIJU ABOUT BP 187/108, HE ORDER 0.2 CATAPRES-ONE TIME
[2019-06-03 20:58] LABS: BASOPHILS 0.1 % (0-2); EOSINOPHILS 2.6 % (0-7); HEMATOCRIT 31.4 % (42.0-54.0); HEMOGLOBIN 10.4 g/dL (13.5-17.5); IMMATURE GRANULOCYTES 0.4 % (0-5); LYMPHOCYTES 15.3 % (15-50); MCH 27.4 pg (26.0-34.0); MCHC 33.1 g/dL (31.0-37.0); MCV 82.8 fL (80.0-100.0); MEAN PLATELET VOLUME 10.3 fL (7.4-10.4); MONOCYTES 10.6 % (2-11); PLATELET COUNT 123 10x3/uL (130-400); RBC 3.79 10x6/uL (4.20-6.10); RDW 15.5 % (11.5-14.5); WBC 7.8 10x3/uL (4.8-10.8)
[2019-06-03 21:08] LABS: ANION GAP 17.1 mmol/L (8-16); CALCIUM 7.8 mg/dL (8.5-10.1); CARBON DIOXIDE 19.9 mmol/L (21.0-32.0)
[2019-06-04] VITALS: BP 172/96
[2019-06-04 05:35] LABS: BASOPHILS 0.2 % (0-2); EOSINOPHILS 5.3 % (0-7); HEMATOCRIT 28.6 % (42.0-54.0); HEMOGLOBIN 9.5 g/dL (13.5-17.5); IMMATURE GRANULOCYTES 0.5 % (0-5); LYMPHOCYTES 17.8 % (15-50); MCH 27.5 pg (26.0-34.0); MCHC 33.2 g/dL (31.0-37.0); MCV 82.9 fL (80.0-100.0); MEAN PLATELET VOLUME 10.5 fL (7.4-10.4); MONOCYTES 11.8 % (2-11); NEUTROPHILS 64.4 % (40-80); PLATELET COUNT 106 10x3/uL (130-400); RBC 3.45 10x6/uL (4.20-6.10); RDW 15.7 % (11.5-14.5); WBC 6.4 10x3/uL (4.8-10.8)
[2019-06-04 07:40] LABS: ANION GAP 21.4 mmol/L (8-16); CALCIUM 7.6 mg/dL (8.5-10.1); CARBON DIOXIDE 16.7 mmol/L (21.0-32.0); CREATININE - SERUM 5.7 mg/dL (0.6-1.3); DIGOXIN 0.99 ng/mL (0.90-2.00); PHOSPHOROUS 4.8 mg/dL (2.5-4.9); POTASSIUM - SERUM 4.1 mmol/L (3.5-5.1)
--- NOTE | 2019-06-04 07:46 | NUR ---
REPORT RECIEVED. PT SITTING UP IN BED. RR EVEN AND UNLABORED. HE HAS A BRYAN DRAINING URINE AND A R CHEST INFUAPORT. BED LOCKED AND IN LOWEST POSITION, CALL LIGHT WITHIN REACH. WILL CTM
[2019-06-04 08:00] VITALS: BP 172/94
[2019-06-04 11:00] VITALS: BP 166/93
[2019-06-04 15:00] VITALS: BP 194/113
--- NOTE | 2019-06-04 16:25 | NUR ---
I have reviewed this patient and I concur with the Shift Assessment completed by the Licensed Practical Nurse today this shift.
--- NOTE | 2019-06-04 19:10 | NUR ---
REPORT RECEIVED. PT RESTING WITH EYES CLOSED. RR EVEN AND UNLABORED. NO S/SX OF DISTRESS NOTED. NO NEEDS EXPRESSED. CALL LIGHT IN REACH. SCDs ON. WILL CTM.
[2019-06-05] VITALS: BP 173/99
[2019-06-05 04:52] LABS: BASOPHILS 0.4 % (0-2); EOSINOPHILS 6.8 % (0-7); HEMATOCRIT 31.4 % (42.0-54.0); HEMOGLOBIN 10.5 g/dL (13.5-17.5); IMMATURE GRANULOCYTES 0.6 % (0-5); LYMPHOCYTES 17.9 % (15-50); MCH 27.6 pg (26.0-34.0); MCHC 33.4 g/dL (31.0-37.0); MCV 82.6 fL (80.0-100.0); MEAN PLATELET VOLUME 9.2 fL (7.4-10.4); MONOCYTES 13.3 % (2-11); PLATELET COUNT 111 10x3/uL (130-400); RDW 15.6 % (11.5-14.5)
[2019-06-05 05:15] LABS: ANION GAP 17.8 mmol/L (8-16); CALCIUM 7.8 mg/dL (8.5-10.1); CARBON DIOXIDE 19.3 mmol/L (21.0-32.0); PHOSPHOROUS 5.1 mg/dL (2.5-4.9); POTASSIUM - SERUM 4.1 mmol/L (3.5-5.1)
--- NOTE | 2019-06-05 07:00 | NUR ---
RECEIVED REPORT. ASSUMED CARE OF PATIENT. RESTING WITH EYES OPEN IN BED. RESP EVEN AND UNLABORED. DENIES NEEDS AT THIS TIME. NO DISTRESS. CALL LIGHT WITHIN REACH.
--- NOTE | 2019-06-05 07:15 | NUR ---
COFFEE PROVIDED UPON REQUEST.
[2019-06-05 08:50] VITALS: BP 188/115
--- NOTE | 2019-06-05 09:22 | NUR ---
BP 183/107. HYDRALAZINE IV ADMINISTERED AT 0915. DOWN TO 176/104 AT THIS TIME.
--- NOTE | 2019-06-05 11:11 | NUR ---
RESTING IN BED, ON CELLPHONE. NO DISTRESS. CALL LIGHT WITHIN REACH.
[2019-06-05 12:56] VITALS: BP 175/108
--- NOTE | 2019-06-05 15:12 | NUR ---
RESTING IN BED. NO DISTRESS. CALL LIGHT WITHIN REACH. PATIENT WITH ATTENTION TOWARD GAME ON TELEVISION. DENIES NEEDS.
[2019-06-05 17:30] VITALS: BP 183/97
--- NOTE | 2019-06-05 19:10 | NUR ---
BEDSIDE REPORT COMPLETED AT THIS TIME, NO CHANGES NOTED FROM NURSE REPORT, PT AAOX4 SITTING UP ON THE BEDSIDE, NO DISTRESS NOTED, PT DENIES COMPLAINTS AT THIS TIME. WILL MONITOR FOR CHANGES
[2019-06-05 20:04] VITALS: BP 181/98
[2019-06-06 00:01] VITALS: BP 152/86
[2019-06-06 05:28] VITALS: BP 195/104
[2019-06-06 06:00] LABS: ANION GAP 17.7 mmol/L (8-16); CALCIUM 8.5 mg/dL (8.5-10.1); CARBON DIOXIDE 17.2 mmol/L (21.0-32.0); CREATININE - SERUM 4.3 mg/dL (0.6-1.3); PHOSPHOROUS 4.2 mg/dL (2.5-4.9); POTASSIUM - SERUM 3.9 mmol/L (3.5-5.1)
--- NOTE | 2019-06-06 07:15 | NUR ---
ASSESSMENT DONE. DENIES NEEDS
[2019-06-06 07:23] LABS: BASOPHILS 0.1 % (0-2); EOSINOPHILS 4.9 % (0-7); HEMATOCRIT 32.8 % (42.0-54.0); HEMOGLOBIN 10.9 g/dL (13.5-17.5); LYMPHOCYTES 17.4 % (15-50); MCH 27.3 pg (26.0-34.0); MCHC 33.2 g/dL (31.0-37.0); MEAN PLATELET VOLUME 9.7 fL (7.4-10.4); MONOCYTES 16.9 % (2-11); NEUTROPHILS 59.7 % (40-80); RDW 15.4 % (11.5-14.5)
[2019-06-06 07:50] LABS: PLATELET COUNT 144 10x3/uL (130-400); WBC 6.7 10x3/uL (4.8-10.8)
[2019-06-06 08:00] VITALS: BP 119/94
[2019-06-06 12:00] VITALS: BP 223/121
--- NOTE | 2019-06-06 14:00 | NUR ---
I have reviewed this patient and I concur with the Shift Assessment completed by the Licensed Practical Nurse today this shift.
--- NOTE | 2019-06-06 14:48 | NUR ---
OT NOTE; PT COMPLETED SIDE ROLLING WITH SBA. PT COMPLETED SUPINE TO SIT WITH CGA. PT COMPLETED UB HYGIENE TASKS WITH SET UP. THANK YOU,YONATHAN PRINCE
[2019-06-06 16:00] VITALS: BP 196/105
[2019-06-06 16:08] LABS: ANCA - ANTIMYELOPEROXIDASE <9.0 U/mL (0.0-9.0); ANCA - ANTIPROTEINASE 3 <3.5 U/mL (0.0-3.5); ANCA - ATYPICAL <1:20 titer (Neg:<1:20); ANCA - CYTOPLASMIC <1:20 titer (Neg:<1:20); ANCA - PERINUCLEAR <1:20 titer (Neg:<1:20)
[2019-06-06 19:08] LABS: SPE - ALBUMIN 2.5 g/dL (2.9-4.4); SPE - ALPHA-1 GLOBULIN 0.4 g/dL (0.0-0.4); SPE - ALPHA-2 GLOBULIN 0.8 g/dL (0.4-1.0); SPE - BETA GLOBULIN 0.6 g/dL (0.7-1.3); SPE - GAMMA GLOBULIN 0.7 g/dL (0.4-1.8); SPE - M-SPIKE Not Observed g/dL (Not Observed)
--- NOTE | 2019-06-06 19:28 | NUR ---
RECEIVED BEDSIDE REPORT. PATIENT IS ALERT AND ORIENTED, RESTING COMFORTABLY IN BED. RESPIRATIONS ARE EVEN AND UNLABORED. NO S/S OF DISTRESS. NO C/O PAIN. CALL LIGHT WITHIN REACH. WILL CPOC.
[2019-06-06 20:45] VITALS: BP 173/92
[2019-06-07 00:30] VITALS: BP 167/88
--- NOTE | 2019-06-07 02:38 | NUR ---
PATIENT APPEARS TO BE SLEEPING. RESPIRATIONS ARE EVEN AND UNLABORED. NO S/S OF DISTRESS. NO C/O PAIN CALL LIGHT WITHIN REACH. WILL CPOC.
[2019-06-07 04:25] LABS: BASOPHILS 0 % (0-2); EOSINOPHILS 0 % (0-7); HEMATOCRIT 28.2 % (42.0-54.0); HEMOGLOBIN 9.4 g/dL (13.5-17.5); IMMATURE GRANULOCYTES 0.7 % (0-5); LYMPHOCYTES 10.1 % (15-50); MCH 27.2 pg (26.0-34.0); MCHC 33.3 g/dL (31.0-37.0); MCV 81.5 fL (80.0-100.0); MEAN PLATELET VOLUME 8.7 fL (7.4-10.4); MONOCYTES 11.8 % (2-11); NEUTROPHILS 77.4 % (40-80); PLATELET COUNT 122 10x3/uL (130-400); RBC 3.46 10x6/uL (4.20-6.10); RDW 15.4 % (11.5-14.5); WBC 8.2 10x3/uL (4.8-10.8)
--- NOTE | 2019-06-07 04:35 | NUR ---
PATIENT URINATING THROUGHOUT NIGHT. STILL A MODERATE AMOUNT ON BLOOD SEEN IN URINAL. EMPTIED 600 ML. PATIENT CONTINUES TO REFUSE THE BRYAN CATHETER.
[2019-06-07 04:43] VITALS: BP 132/80
[2019-06-07 05:00] LABS: ANION GAP 16.8 mmol/L (8-16); CALCIUM 8.2 mg/dL (8.5-10.1); CARBON DIOXIDE 18.6 mmol/L (21.0-32.0); DIGOXIN 0.56 ng/mL (0.90-2.00); PHOSPHOROUS 4.7 mg/dL (2.5-4.9); POTASSIUM - SERUM 4.4 mmol/L (3.5-5.1)
[2019-06-07 08:00] VITALS: BP 162/82
--- NOTE | 2019-06-07 10:39 | NUR ---
ASSESSMENT DONE. DENIES NEEDS
[2019-06-07 12:00] VITALS: BP 145/91
--- NOTE | 2019-06-07 13:13 | OP ---
PATIENT NAME: JAY HAWTHORNE MEDICAL RECORD: [id number] :45 LOCATION:D.M2 D.2128 ADMISSION DATE:05/31/19 SURGEON: DAYSI MYLES MD DATE OF OPERATION: 06/01/2019 PROCEDURE: Left heart catheterization, selective coronary angiography, right femoral artery approach. CATHETERS: A 5-Ugandan sheath, 5/4 left and right Ede, 5/4 pig. DISPOSITION: The procedure was well tolerated. The patient was returned to ICU in stable condition. FINDINGS: Left ventriculography in 30-degree LIN view shows global LV hypokinesis, EF estimated at 40%. CORONARY ANATOMY: LEFT MAIN: Left main is free of disease. LAD: ____ shows 80% stenosis at its mid portion. CIRCUMFLEX: Small vessel, free of disease. RIGHT CORONARY ARTERY: Distally in PDA has a tight stenosis, not amenable to percutaneous intervention. PLAN: Intervention to LAD momentarily. DESCRIPTION OF PROCEDURE: A 5-Ugandan sheath was exchanged for a 6-Ugandan sheath. An XB LAD guide catheter was used. A 300 cm Whisper wire was placed across the 80% stenosed LAD at this portion of vessel. Stent deployed was 3.0 x 12 Integrity nondrug-eluting stent up to 14 atmospheres for 45 seconds. Final resolution shows excellent resolution of 80% stenosis, no significant residual. CANDIS flow was 3 throughout the procedure. Plavix was previously loaded. Sheath closed with ExoSeal device. TRANSINT:[id number] Voice Confirmation ID: [id number] DOCUMENT ID: [id number] DAYSI MYLES MD at 1313 CC: [id number] DICTATION DATE: 06/01/19 1639 MANAGER ASSET: 06/01/19 2353 ADM IN [facility] [address] [place] [address]
[2019-06-07 16:00] VITALS: BP 140/81
--- NOTE | 2019-06-07 16:00 | NUR ---
I have reviewed this patient and I concur with the Shift Assessment completed by the Licensed Practical Nurse today this shift.
--- NOTE | 2019-06-07 17:28 | NUR ---
WITHOUT CHANGES OR DISTRESS NOTED AT THIS TIME.
--- NOTE | 2019-06-07 20:42 | NUR ---
HS MEDS GIVEN WITH FRESH ICE WATER. PT DENIES PAIN OR NEEDS, BED LOW, CL IN REACH.
[2019-06-07 22:12] VITALS: BP 154/90
--- NOTE | 2019-06-08 00:32 | NUR ---
VIDEOTAPE RECORDING ENGINEER AT BED SIDE, PT UP TO SHOWER.
--- NOTE | 2019-06-08 02:37 | NUR ---
RESTING WITH EYES CLOSED, RESPERATIONS EVEN, NO S/S DISTRESS NOTED.
[2019-06-08 04:17] LABS: BASOPHILS 0.1 % (0-2); EOSINOPHILS 1.5 % (0-7); HEMATOCRIT 25.5 % (42.0-54.0); HEMOGLOBIN 8.3 g/dL (13.5-17.5); IMMATURE GRANULOCYTES 1.4 % (0-5); LYMPHOCYTES 12.1 % (15-50); MCH 26.8 pg (26.0-34.0); MCHC 32.5 g/dL (31.0-37.0); MCV 82.3 fL (80.0-100.0); MEAN PLATELET VOLUME 9.7 fL (7.4-10.4); MONOCYTES 10.7 % (2-11); NEUTROPHILS 74.2 % (40-80); RDW 15.4 % (11.5-14.5); WBC 7.3 10x3/uL (4.8-10.8)
--- NOTE | 2019-06-08 04:19 | NUR ---
I have reviewed this patient and I concur with the Shift Assessment completed by the Licensed Practical Nurse today this shift.
[2019-06-08 04:25] LABS: PLATELET COUNT 148 10x3/uL (130-400)
[2019-06-08 04:30] VITALS: BP 163/90
[2019-06-08 04:34] LABS: ALBUMIN 2.4 g/dL (3.4-5.0); ANION GAP 16.9 mmol/L (8-16); BILIRUBIN - TOTAL 0.37 mg/dL (0.2-1.3); CALCIUM 7.8 mg/dL (8.5-10.1); CARBON DIOXIDE 18.4 mmol/L (21.0-32.0); POTASSIUM - SERUM 4.3 mmol/L (3.5-5.1); PROTEIN - SERUM 5.8 g/dL (6.4-8.2)
--- NOTE | 2019-06-08 07:20 | NUR ---
AM ROUNDS- PT RESTING COMFORTABLY IN BED WITH EYES CLOSED. MONITOR SHOWING SR WITH RATE OF 77. RT CHEST INFUSAPORT SL. RESP EVEN AND NONLABORED ON 3L NC. PT DENIES ANY NEEDS AT THIS TIME. CALL LIGHT IN REACH, NAD NOTED, WILL CONTINUE TO MONITOR.
[2019-06-08 09:10] LABS: ANTI-GLOMERULAR BASMENT MEMBRN 3 units (0-20)
[2019-06-08 09:36] VITALS: BP 169/92
--- NOTE | 2019-06-08 12:53 | NUR ---
Nutrition Follow-up: Pt reports eating well. Ate ~75% of breakfast this AM. C/o sore throat. Noted ST signed off. Diet: Renal ADA, Mech Soft No new wt Labs noted: K+ 4.3, Glu 91, Ca 7.8, Alb 2.4, PO4 4.7 (06/07) Meds reviewed -Continue current diet as tolerated. -RD following.
[2019-06-08 14:47] VITALS: BP 162/96
--- NOTE | 2019-06-08 14:57 | NUR ---
PT RESTING COMFORTABLY IN BED, DENIES ANY NEEDS AT THIS TIME. CALL LIGHT IN REACH,NAD NOTED,W ILL CONTINUE TO MONITOR.
[2019-06-09 05:54] LABS: BASOPHILS 0.2 % (0-2); HEMATOCRIT 25.4 % (42.0-54.0); HEMOGLOBIN 8.3 g/dL (13.5-17.5); IMMATURE GRANULOCYTES 1.4 % (0-5); LYMPHOCYTES 22.4 % (15-50); MCHC 32.7 g/dL (31.0-37.0); MCV 82.7 fL (80.0-100.0); MEAN PLATELET VOLUME 9.7 fL (7.4-10.4); MONOCYTES 12.4 % (2-11); NEUTROPHILS 60.6 % (40-80); PLATELET COUNT 171 10x3/uL (130-400); RBC 3.07 10x6/uL (4.20-6.10); RDW 15.5 % (11.5-14.5); WBC 6.3 10x3/uL (4.8-10.8)
[2019-06-09 06:16] LABS: ALBUMIN 2.3 g/dL (3.4-5.0); ANION GAP 13.7 mmol/L (8-16); BILIRUBIN - TOTAL 0.43 mg/dL (0.2-1.3); CREATININE - SERUM 4.5 mg/dL (0.6-1.3); POTASSIUM - SERUM 4.1 mmol/L (3.5-5.1); PROTEIN - SERUM 5.7 g/dL (6.4-8.2)
[2019-06-09 06:21] LABS: CARBON DIOXIDE 23.4 mmol/L (21.0-32.0)
--- NOTE | 2019-06-09 07:30 | NUR ---
AM ROUNDS COMPLETED. INTRODUCED MYSELF TO PT PRIMARY RN FOR TODAYS SHIFT. PT IS A&O SITTING UP IN BED RESTING QUIETLY. SHIFT ASSESSMENT COMPLETED. RR NONLABORED ON RA. PT HAS A COLOSTOMY AND DOES COMPLETE SELF CARE. S1S2 NOTED RRR, TELEMETRY RUNNING NORMAL SINUS PER IDES TechnologiesER TECH MUNA. PT HAS A RIGHT CHEST INFUSAPORT SL, DRSG SECURED TO SKIN. PT STATES HE IS HOPING TO BE DISCHARGED TODAY AND PER TEAM NOTES AND CONSULTS IT APPEARS HE WILL BE ABLE TO AND IS STABLE FOR DISCHARGE. WILL DISCUSS WITH PRIMARY AND SEE ABOUT DISCHARGE PAPER WORKUP. PT VOICED THANKS AND DENIES ANY CURRENT PAIN OR NEEDS. CL IN REACH, BED IN LOWEST, SIDE RAILS X2. WILL CTM.
[2019-06-09 08:00] VITALS: BP 153/89
--- NOTE | 2019-06-09 10:39 | EC ---
PATIENT:JAY HAWTHORNE DATE OF SERVICE: 05/31/19 SEX: M MEDICAL RECORD: [id number] DATE OF : 45 LOCATION:D. D.212 AGE OF PATIENT: 74 ADMISSION DATE: 05/31/19 REFERRING PHYSICIAN: INTERPRETING PHYSICIAN: NIKOLAY HINES MD ECHOCARDIOGRAM REPORT ECHO CHARGES 4 ECHO COMPLETE Date: 05/31/19 CLINICAL DIAGNOSIS: CHF/ABNORMAL EKG/ELEVATED TROPNIN AND D-DIMER ECHOCARDIOGRAPHIC MEASUREMENTS (adult normal given) AC root (d.<3.7cm) 3.2 cm LV Septum d (<1.2 cm> 1.7 cm Valve Excursion 2.0 cm LV Septum (systole) 2.0 cm Left Atria (s.<4.0cm> 3.3 cm LVPW d(<1.2cm) 1.4 cm RV (d.<2.3cm) 2.2 cm LVPW (sytole) 1.7 cm LV diastole(<5.6CM) 5.2 cm MV E-F(>70mm/sec) cm LV systole 4.1 cm LVOT Diameter 2.1 cm MV exc.(>10mm) cm Est.ejection fraction (50-75%) % DOPPLER: LVIT cm/sec A 64.0 cm/sec E 36.0 cm/sec LA cm/sec RVSP 45.0 mmHg LVOT 80.0 cm/sec AOP1/2T m/s Asc. Ao 132 cm/sec RVOT 59.0 cm/sec RA cm/sec PA 87.0 cm/sec AV Gradient Peak 6.9 mmHg AV Mean 3.8 mmHg AV Area 1.9 cm MV Gradient Peak 2.7 mmHg MV Mean 1.0 mmHg MV Area cm COMMENTS: It Corporate Recruiter: 1 TAIWO MONIK Margarine Maker: 1 Dr. Hines TAPE# PACS Pericardial Effusion N DATE OF SERVICE: ECHOCARDIOGRAM FINDINGS: 1. Left ventricular chamber size is mildly dilated. Left ventricular systolic function is markedly depressed at 20% to 25%. 2. Left atrium is within normal limits at 3.3 cm. Right atrium and right ventricular chamber sizes are mildly dilated. 3. Valvular structures have normal structure and motion. ECHOCARDIOGRAM REPORT [id number] JAY HAWTHORNE 4. Doppler interrogation reveals mild mitral regurgitation, moderate tricuspid regurgitation. No other valvular insufficiency or stenosis. Pulmonary systolic pressure is estimated at 45 mmHg. 5. No evidence of pericardial effusion or left ventricular thrombus. TRANSINT:[id number] Voice Confirmation ID: [id number] DOCUMENT ID: [id number] NIKOLAY HINES MD at 1039 CC: [id number] DICTATION DATE: 06/01/19 1100 RESTAURANT RECRUITER: 06/01/19 1304 ADM IN [facility] [address] [place] [address]
[2019-06-09 12:00] VITALS: BP 166/90
[2019-06-09] MEDS ORDERED: HYDRALAZINE HCL25 MG PO (12:22)
[2019-06-09] MEDS ORDERED: PROCARDIA10 MG PO (12:23)
[2019-06-09] MEDS ORDERED: SODIUM BICARBO650 MG PO (12:25)
--- NOTE | 2019-06-09 12:51 | NUR ---
PT SITTING UP IN BED RESTING QUIETLY WATCHING TV. PT IS EXCITED TO BE DISCHARGED TODAY. DENIES ANY CURRENT PAIN OR NEEDS. WILL CTM.
[2019-06-09] MEDS ORDERED: BAYER CHEWABLE81 MG PO (13:52)
--- NOTE | 2019-06-09 14:00 | MORECARE ---
CASE MANAGEMENT DISCHARGE SUMMARY PATIENT: JAY JENNINGS UNIT: [id number] ADM DATE: 05/31/19 AGE: 74 : 45 SEX: M ROOM/BED: D.7408 AUTHOR: NICODOC PHYSICIAN: REFERRING PHYSICIAN: EMILY CRUZ MD DATE OF SERVICE: 06/09/19 Discharge Plan Patient Name: JAY JENNINGS Facility: [facility]:[place] : 1945 Planned Disposition: Home Anticipated Discharge Date: 06/09/19 Discharge Date: Expected LOS: 9 Initial Reviewer: [email or web address] Initial Review Date: 05/31/2019 Generated: 06/09/19 3:00 pm DCP- Discharge Planning Updated by [email or web address]: Sarah Simmons on 05/31/19 11:[address] DC PLAN: Undetermined at this time. ANTICIPATED DC NEEDS: Family denied dc needs. Patient on Vent. CM met with patient's family due to patient being on vent to complete initial dc planning assessment. CM educated patients brother on the CM role and verbal consent given by patient's brother, Jay Jennings to complete assessment. CM verified patient's address, phone number, and emergency contact phone numbers. Patient lives at home with his daughter part of the time and with his girlfriend in [place] part of the time. At discharge family reports the patient will want to return home and they feel this is a safe discharge. CM discussed availability of home health, rehab services, and medical equipment. Donn is unsure of dc needs at this time due to patient being on the Vent. DC plan is undetermined at this time and cm will need to re-evaluate once patient medically stable. CM will continue to follow and will assist as needed with dc plans/needs. Sarah Simmons RN, [facility] DCPIA - Discharge Planning Initial Assessment Updated by [email or web address]: Sarah Simmons on 05/31/19 12:32 pm * Is the patient Alert and Oriented? Yes * PCP Family not sure who his pcp is. * Pharmacy [facility] in [place] * Preadmission Environment Home with Family * ADLs Independent * Equipment None * List name and contact numbers for known caregivers / representatives who currently or will assist patient after discharge: Donn Jennings - Brother - [phone] Fatmi Dick - daughter- [phone] * Verbal permission to speak to the caregivers and representatives has been obtained from the patient. Yes * Community resources currently utilized None * Can the patient safely return to the preadmission environment? Yes * Has this patient been hospitalized within the prior 30 days at any hospital? No Coverage Notice Reviewer: [email or web address] Bryan See Notice Issued Date-Time: 06/09/2019 13:25 Notice Type: IM Discharge Notice Notice Delivered To: Patient Relationship to Patient: Director Private Name: Delivery Method: HAND - Hand Delivered Freya Days: Prior Verbal Notification: Recipient Understood Notice: Yes Recipient Signature: Yes Med Rec Note Co-signed by Attending: Coverage Notice Comment: Last DP export: 05/31/19 11:42 a Patient Name: JAY JENNINGS Page [phone] at 1400 All edits/amendments must be made on the electronic document DICTATION DATE: 06/09/19 1400 SALES MGR: DIANE 06/09/19 1400 RPT#: [id number] DC DATE: STATUS: ADM IN [facility] [address] [place] [address] END OF REPORT
--- NOTE | 2019-06-09 14:46 | NUR ---
FLUSHED PTS R.CHEST INFUSAPORT WITH HEPARIN PER D/C PROTOCOL. D/C WITH HUEBER NEEDLE FULLY INTACT. PLACED DRSG OVER PORT. PT IS DRESSED AND HAS ALL BELONGINGS READY TO GO AND STATES HIS BROTHER IS ON HIS WAY FOR TRANSPORTATION. DISCHARGE TEACHING PROVIDED AND PAPERS SIGNED. PT VERBALIZED UNDERSTANDING AND DENIES ANY QUESTIONS OR CONCERNS. D/C TELEMETRY AND RETURNED TO [facility].
--- NOTE | 2019-06-09 15:36 | NUR ---
PTS FAMILY HERE TO MANUFACTURING QUALITY ENGINEER PT. ALL BELONGINGS COLLECTED. PT NOW LEAVING.
== END 2019-06-09 15:38 | disposition home or self-care (01) | DRG 981 ==
LOC: D.ER 07:55 → D.ICU 08:07 → D.M2 06-03 13:22
PROVIDERS: Family Medicine; Internal Medicine Interventional Cardiology; Internal Medicine Nephrology; ADMIT Internal Medicine Nephrology; ATTEND Internal Medicine Nephrology
PROC: 5A1945Z Respiratory Ventilation, 24-96 Consecutive Hours (ICD-10-PCS; principal; 2019-05-31)
PROC: B2111ZZ Fluoroscopy of Multiple Coronary Arteries using Low Osmolar Contrast (ICD-10-PCS; 2019-06-01)
PROC: B2151ZZ Fluoroscopy of Left Heart using Low Osmolar Contrast (ICD-10-PCS; 2019-06-01)
PROC: 4A023N7 Measurement of Cardiac Sampling and Pressure, Left Heart, Percutaneous Approach (ICD-10-PCS; 2019-06-01)
PROC: 02703DZ Dilation of Coronary Artery, One Artery with Intraluminal Device, Percutaneous Approach (ICD-10-PCS; 2019-06-01 13:45)
DX: J96.01 Acute respiratory failure with hypoxia (principal); I50.43 Acute on chronic combined systolic (congestive) and diastolic (congestive) heart failure; G93.41 Metabolic encephalopathy; I21.4 Non-ST elevation (NSTEMI) myocardial infarction; I13.0 Hypertensive heart and chronic kidney disease with heart failure and stage 1 through stage 4 chronic kidney disease, or unspecified chronic kidney disease; E87.0 Hyperosmolality and hypernatremia; N17.9 Acute kidney failure, unspecified; D62 Acute posthemorrhagic anemia; N18.9 Chronic kidney disease, unspecified; I25.10 Atherosclerotic heart disease of native coronary artery without angina pectoris; E78.5 Hyperlipidemia, unspecified

== ENCOUNTER 2020-04-14 09:00 | Inpatient (IN) | payer MEDICARE ==
[~2020-04-14] VITALS: Ht 177.8 cm; Wt 63.6 kg
[2020-04-14] VITALS (13 sets, daily range): BP systolic 110–187; BP diastolic 66–115; Ht 177.8 cm; Wt 63.6 kg
--- NOTE | ~2020-04-14 | OP ---
PATIENT NAME: JAY HAWTHORNE MEDICAL RECORD: [id number] :45 LOCATION:.[facility] D.2314 ADMISSION DATE:04/14/20 SURGEON: LUIZA LACEY MD DATE OF OPERATION: 04/14/2020 PREOPERATIVE DIAGNOSES: 1. Acute renal failure. 2. Undifferentiated congestive heart failure. 3. Coronary artery disease. 4. Hypertension. 5. Anemia. POSTOPERATIVE DIAGNOSES: 1. Acute renal failure. 2. Undifferentiated congestive heart failure. 3. Coronary artery disease. 4. Hypertension. 5. Anemia. PROCEDURE: Right IJ 12.5 cm Trialysis catheter placement. SURGEON: Luiza Lacey MD REPORT OF PROCEDURE: The patient's right neck was prepped and draped in sterile fashion. A total of 5 cc of 1% lidocaine with epinephrine was infused into the surrounding tissues. Using ultrasound guidance, a needle was used to cannulate the right internal jugular vein. The guidewire was advanced with ease. Over this wire, a dilator was placed followed by the Trialysis catheter. This catheter aspirated nonpulsatile dark blood and flushed easily in all 3 ports. This was sutured into place with 3-0 nylons and dressed appropriately. COMPLICATIONS: None. CONDITION: Fair. ANESTHESIA: Local. BLOOD LOSS: Minimal. Procedure done in the ICU at the bedside. TRANSINT:[id number] Voice Confirmation ID: [id number] DOCUMENT ID: [id number] LUIZA LACEY MD CC: [id number] DICTATION DATE: 04/14/20 1230 HAIRSPRING TRUING INSPECTOR: 04/14/20 1446 ADM IN [facility] [address] [place] [address]
[~2020-04-14 09:00] MED LIST: BAYER CHEWABLE81 MG PO; HYDRALAZINE HCL25 MG PO; LASIX40 MG PO; LIPITOR10 MG PO; LOSARTAN; METOPROLOL TART50 MG PO; PLAVIX75 MG PO; PROCARDIA10 MG PO; SODIUM BICARBO650 MG PO
[2020-04-14 09:56] LABS: BASOPHILS 0.1 % (0-2); EOSINOPHILS 0 % (0-7); IMMATURE GRANULOCYTES 0.5 % (0-5); LYMPHOCYTES 2.6 % (15-50); MCH 25.8 pg (26.0-34.0); MCHC 30.8 g/dL (31.0-37.0); MCV 83.6 fL (80.0-100.0); MEAN PLATELET VOLUME 10.8 fL (7.4-10.4); MONOCYTES 4.2 % (2-11); NEUTROPHILS 92.6 % (40-80); PLATELET COUNT 157 10x3/uL (130-400); RBC 2.87 10x6/uL (4.20-6.10); RDW 16.2 % (11.5-14.5); WBC 8.3 10x3/uL (4.8-10.8)
[2020-04-14 10:06] LABS: APTT 22.5 SECONDS (22.8-39.4); CALC OSMOLALITY 315 mosm/kg (275-300); CALCIUM 7.8 mg/dL (8.5-10.1); CARBON DIOXIDE 22.2 mmol/L (21.0-32.0); CHLORIDE - SERUM 105 mmol/L (98-107); CREATININE - SERUM 6.5 mg/dL (0.6-1.3); GLUCOSE 98 mg/dL (74-106); INR 1.05 (0.85-1.17); POTASSIUM - SERUM 4.8 mmol/L (3.5-5.1); PROTIME 13.6 SECONDS (11.6-15.0); SODIUM 144 mmol/L (136-145); UREA NITROGEN 95 mg/dL (7-18); eGFR NON AFRICAN AMERICAN 9 mL/min (90-120)
--- NOTE | 2020-04-14 10:10 | NUR ---
BUMEX INFUSING ON TRANSFER TO ICU, 2.5 ML INFUSED NITRO INFUSING ON TRANSER TO ICU, 30 ML INFUSED
[2020-04-14 10:26] LABS: ALBUMIN 3.1 g/dL (3.4-5.0); ALKALINE PHOSPHATASE 76 U/L (30-120); ALT (SGPT) 70 U/L (10-68); BILIRUBIN - TOTAL 0.37 mg/dL (0.2-1.3); CKMB 15.6 U/L (0.0-3.6); CREATINE KINASE 451 UL (21-232); PRO BNP 15505 pg/mL (0-125); PROTEIN - SERUM 6.9 g/dL (6.4-8.2)
[2020-04-14 10:34] LABS: HEMOGLOBIN 7.4 g/dL (13.5-17.5); TROPONIN-I 2.897 ng/mL (0.000-0.060)
--- NOTE | 2020-04-14 11:03 | NUR ---
DR NG AWARE OF PT ARRIVAL IN THE ICU. ORDERS TO PLACE FC. 16 TURKS AND [place]ER FC PLACED WITH CLEAR, YELLOW RETURN.
[2020-04-14] MEDS ORDERED: HYDRALAZINE HC100 MG (11:10)
[2020-04-14] MEDS ORDERED: LASIX80 MG PO (11:13)
[2020-04-14] MEDS ORDERED: PROTONIX40 MG PO (11:14)
[2020-04-14] MEDS ORDERED: METOPROLOL TART50 MG PO (11:16)
[2020-04-14] MEDS ORDERED: CATAPRES0.1 MG PO (11:18)
[2020-04-14] MEDS ORDERED: SODIUM BICARBO650 MG PO (11:20)
[2020-04-14] MEDS ORDERED: PROCARDIA10 MG PO (11:24)
[2020-04-14] MEDS ORDERED: FERROUS SULFAT325 MG (11:26)
[2020-04-14] MEDS ORDERED: ROCALTROL0.25 MCG (11:28)
--- NOTE | 2020-04-14 12:09 | NUR ---
DR LACEY AT THE PTS BEDSIDE AND PLACED A TRIALYSIS IN THE RIGHT IJ. CXR ORDERED
[2020-04-14 15:30] LABS: BASOPHILS 0 % (0-2); EOSINOPHILS 0 % (0-7); HEMATOCRIT 21.5 % (42.0-54.0); IMMATURE GRANULOCYTES 0.5 % (0-5); LYMPHOCYTES 3.6 % (15-50); MCH 25.8 pg (26.0-34.0); MCHC 30.7 g/dL (31.0-37.0); MEAN PLATELET VOLUME 10.4 fL (7.4-10.4); MONOCYTES 1.4 % (2-11); NEUTROPHILS 94.5 % (40-80); PLATELET COUNT 157 10x3/uL (130-400); RBC 2.56 10x6/uL (4.20-6.10); RDW 16.1 % (11.5-14.5); WBC 6.6 10x3/uL (4.8-10.8)
[2020-04-14 15:40] LABS: HEMOGLOBIN 6.6 g/dL (13.5-17.5)
[2020-04-14 15:57] LABS: CKMB 21.3 U/L (0.0-3.6); CREATINE KINASE 480 UL (21-232)
[2020-04-14 16:01] LABS: TROPONIN-I 6.593 ng/mL (0.000-0.060)
[2020-04-14 16:14] LABS: ALBUMIN 2.7 g/dL (3.4-5.0); ANION GAP 21.2 mmol/L (8-16); BILIRUBIN - TOTAL 0.23 mg/dL (0.2-1.3); CARBON DIOXIDE 22.7 mmol/L (21.0-32.0); POTASSIUM - SERUM 4.9 mmol/L (3.5-5.1); PROTEIN - SERUM 5.9 g/dL (6.4-8.2)
--- NOTE | 2020-04-14 18:26 | NUR ---
BP NOW WNL AFTER RESUMING HOME MEDS AND UP-TITRATING NITRO UP TO 140. WAS ABLE TO COME DOWN TO 120 APPROX. 15 MINUTES AGO. CTM.
[2020-04-14 20:27] LABS: BASOPHILS 0 % (0-2); EOSINOPHILS 0 % (0-7); HEMATOCRIT 22.1 % (42.0-54.0); IMMATURE GRANULOCYTES 0.5 % (0-5); LYMPHOCYTES 4.9 % (15-50); MCH 25.9 pg (26.0-34.0); MCHC 31.2 g/dL (31.0-37.0); MCV 83.1 fL (80.0-100.0); MEAN PLATELET VOLUME 9.7 fL (7.4-10.4); MONOCYTES 7.1 % (2-11); NEUTROPHILS 87.5 % (40-80); PLATELET COUNT 169 10x3/uL (130-400); RBC 2.66 10x6/uL (4.20-6.10); RDW 16.2 % (11.5-14.5)
[2020-04-14 20:28] LABS: WBC 8.6 10x3/uL (4.8-10.8)
[2020-04-14 20:29] LABS: HEMOGLOBIN 6.9 g/dL (13.5-17.5)
[2020-04-14 20:58] LABS: CALCIUM 7.3 mg/dL (8.5-10.1); CARBON DIOXIDE 24.9 mmol/L (21.0-32.0); CHLORIDE - SERUM 103 mmol/L (98-107); CKMB 21.1 U/L (0.0-3.6); GLUCOSE 139 mg/dL (74-106); MAGNESIUM - SERUM 1.5 mg/dL (1.8-2.4); POTASSIUM - SERUM 5.2 mmol/L (3.5-5.1); SODIUM 141 mmol/L (136-145)
[2020-04-14 21:00] LABS: CALC OSMOLALITY 315 mosm/kg (275-300); CREATINE KINASE 610 UL (21-232); CREATININE - SERUM 6.8 mg/dL (0.6-1.3); eGFR NON AFRICAN AMERICAN 8 mL/min (90-120)
[2020-04-14 21:09] LABS: TROPONIN-I 10.422 ng/mL (0.000-0.060)
[2020-04-14 21:10] LABS: UREA NITROGEN 105 mg/dL (7-18)
--- NOTE | 2020-04-14 21:23 | NUR ---
PAGED RENAL AT THIS TIME TO CLARIFY BLOOD TRANSFUSION ORDER AND TO REPORT CRITICAL LAB VALUES
[2020-04-14 22:24] LABS: INR 1.16 (0.85-1.17); PROTIME 14.7 SECONDS (11.6-15.0)
[2020-04-14 22:28] LABS: APTT 30.1 SECONDS (22.8-39.4)
--- NOTE | 2020-04-14 22:51 | NUR ---
spoke with cardiology regarding patient status no new orders at this time
[2020-04-15] VITALS (10 sets, daily range): BP systolic 138–184; BP diastolic 66–112
[2020-04-15 04:40] LABS: BASOPHILS 0 % (0-2); EOSINOPHILS 0 % (0-7); HEMATOCRIT 24.7 % (42.0-54.0); IMMATURE GRANULOCYTES 0.5 % (0-5); LYMPHOCYTES 11.1 % (15-50); MCH 25.3 pg (26.0-34.0); MCV 84.3 fL (80.0-100.0); MEAN PLATELET VOLUME 10.5 fL (7.4-10.4); MONOCYTES 6.8 % (2-11); NEUTROPHILS 81.6 % (40-80); RBC 2.93 10x6/uL (4.20-6.10); RDW 16.5 % (11.5-14.5); WBC 10.6 10x3/uL (4.8-10.8)
[2020-04-15 04:41] LABS: HEMOGLOBIN 7.4 g/dL (13.5-17.5); PLATELET COUNT 127 10x3/uL (130-400)
[2020-04-15 05:29] LABS: ALBUMIN 3.1 g/dL (3.4-5.0); ALKALINE PHOSPHATASE 58 U/L (30-120); BILIRUBIN - TOTAL 0.38 mg/dL (0.2-1.3); CALCIUM 7.5 mg/dL (8.5-10.1); CARBON DIOXIDE 22.3 mmol/L (21.0-32.0); CHLORIDE - SERUM 103 mmol/L (98-107); CKMB 19.3 U/L (0.0-3.6); CREATINE KINASE 731 UL (21-232); GLUCOSE 147 mg/dL (74-106); PROTEIN - SERUM 6.7 g/dL (6.4-8.2); SODIUM 143 mmol/L (136-145); eGFR NON AFRICAN AMERICAN 8 mL/min (90-120)
[2020-04-15 05:31] LABS: ALT (SGPT) 86 U/L (10-68); CALC OSMOLALITY 321 mosm/kg (275-300); POTASSIUM - SERUM 4.4 mmol/L (3.5-5.1); TROPONIN-I 8.446 ng/mL (0.000-0.060); UREA NITROGEN 107 mg/dL (7-18)
--- NOTE | 2020-04-15 06:00 | NUR ---
COURTNEY ON UNIT ROUNDING ON PATIENT, ACKNOWLEDGED CRITICAL LAB VALUES AT THIS TIME, PATIENT UPDATE GIVEN, NEW ORDERS RECEIVED. PINK BLOOD TINGED URINE NOTED IN BRYAN
--- NOTE | 2020-04-15 10:57 | NUR ---
SPOKE WITH DR VALDEZ, UPDATES PROVIDED. SHE STATED SHE WOULD CALL PTS FAMILY TO PROVIDE UPDATES.
--- NOTE | 2020-04-15 11:17 | NUR ---
DR PATEL HERE TO SEE PT.
--- NOTE | 2020-04-15 11:51 | NUR ---
SPOKE W/ DENZEL, DAUGHTER, WHO REPORTS SHE IS TALKING TO HER BROTHER AND PT'S . DISCUSSED THAT HE HAS CODED 3 TIMES, AND IS NOW CODING AGAIN. EDUCATED ABOUT HOW CODING MEANS HE KEEPS LOSING HIS HR AND THUS, HIS BP. SHE SAYS SHE WANTS EVERYTHING DONE, AND I REPORTED WE WILL CONTINUE ALL LIFE-SAVING MEASURES. DISCUSSED THESE MAY BECOME FUTILE. REPORTS UNDERSTANDING, AND WILL RELAY THIS TO HER FAMLY.
[2020-04-15 12:17] LABS: CREATINE KINASE 521 UL (21-232); TROPONIN-I 4.919 ng/mL (0.000-0.060)
== END 2020-04-15 19:55 ==
LOC: D.ER 09:00 → D.EDHOLD 09:17 → D.ICU 09:17
PROVIDERS: Family Medicine; Internal Medicine Pulmonary Disease; ADMIT Internal Medicine; ATTEND Internal Medicine
PROC: 05HM33Z Insertion of Infusion Device into Right Internal Jugular Vein, Percutaneous Approach (ICD-10-PCS; 2020-04-14)
PROC: 0BH17EZ Insertion of Endotracheal Airway into Trachea, Via Natural or Artificial Opening (ICD-10-PCS; principal; 2020-04-15)
PROC: 5A1935Z Respiratory Ventilation, Less than 24 Consecutive Hours (ICD-10-PCS; 2020-04-15)
DX: I13.2 Hypertensive heart and chronic kidney disease with heart failure and with stage 5 chronic kidney disease, or end stage renal disease (principal); I50.21 Acute systolic (congestive) heart failure; I21.4 Non-ST elevation (NSTEMI) myocardial infarction; J96.01 Acute respiratory failure with hypoxia; N18.5 Chronic kidney disease, stage 5; N17.9 Acute kidney failure, unspecified; D63.1 Anemia in chronic kidney disease; I46.9 Cardiac arrest, cause unspecified; I25.10 Atherosclerotic heart disease of native coronary artery without angina pectoris; D64.9 Anemia, unspecified